=== PATIENT | male | born 1985 | race Caucasian/White ===

== ENCOUNTER 2020-06-17 04:08 | Emergency (ER) | payer OTHER ==
[~2020-06-17] VITALS: Ht 182.9 cm; Wt 104.3 kg
[2020-06-17 04:57] LABS: ABSOLUTE BASOPHILS 0.1 thou/uL (0.0-0.2); ABSOLUTE EOSINOPHILS 0.3 thou/uL (0.0-0.7); ABSOLUTE NEUTROPHILS 7.2 thou/uL (1.6-8.1); BASOPHILS 0.9 %; HEMATOCRIT 45.6 % (42.0-52.0); HEMOGLOBIN 15.9 gm/dL (14.0-18.0); LYMPHOCYTES 25.8 %; MCH 32.4 pg (26.0-34.0); MCHC 34.7 g/dL (28.0-37.0); MCV 93.1 fL (80.0-100.0); MONOCYTES 8.7 %; MPV 9.5 fl. (7.2-11.1); NUCLEATED RBCS 0 /100WBC; PLATELET COUNT* 232 thou/uL (150-400); POLYS 61.6 %; WBC 11.6 thou/uL (4.0-11.0)
[2020-06-17 05:05] LABS: CALCIUM 8.5 mg/dL (8.5-10.1)
[2020-06-17 05:08] LABS: PROTIME 10.4 Seconds (9.20-11.50)
[2020-06-17 05:09] LABS: POTASSIUM 2.8 mmol/L (3.5-5.1)
[2020-06-17 05:10] LABS: TOTAL BILIRUBIN 0.5 mg/dL (<0.1-1.0); TOTAL PROTEIN 7.1 g/dL (6.4-8.2)
[2020-06-17 06:54] VITALS: BP 119/59
--- NOTE | 2020-06-18 14:40 | EKG ---
[place] [address] ELECTROCARDIOGRAM REPORT Name: JOSE DELAROSA Room: [facility]#: [id number] Admission: 06/17/20 Attend Phys: Discharge: 06/17/20 Date of : 87 Date of Service: 06/17/20441 Report #: [id number] THIS REPORT FOR: //name// [facility] ED Test Date: 2020-06-17 Test Time: 04:42:36 Pat Name: JOSE DELAROSA Department: Room: Gender: Director Of Corporate Communications: : 1985 Requested By: Angella Chavis Order Number: [id number] MD: Nawaf Gonzales Measurements Intervals [place] Rate: 72 P: 45 WI: 124 QRS: 56 QRSD: 105 T: 2 QT: 403 QTc: 442 Interpretive Statements Sinus rhythm No previous ECG available for comparison Electronically Signed On 06-18-2020 14:40:22 CDT by Nawaf Gonzales [email or web address] <ELECTRONICALLY SIGNED> By: Nawaf Gonzales MD, [facility] 06/18/20 1440 1 1 Nawaf Gonzales MD, FACC /EPI
== END 2020-06-17 06:56 | disposition home or self-care (01) ==
LOC: M.ERS 04:08
PROVIDERS: Personal Emergency Response Attendant
DX: F41.9 Anxiety disorder, unspecified (principal); F17.210 Nicotine dependence, cigarettes, uncomplicated; Z86.711 Personal history of pulmonary embolism; Z91.010 Allergy to peanuts